=== PATIENT | male | born 1965 | race Caucasian/White ===

== ENCOUNTER → 2016-09-29 | Day surgery (SDC) | payer BC ==
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
[~2016-09-29] MED LIST: ACETAMINOPHEN 1000 MG/100 ML VIAL IV ONE; ACETAMINOPHEN/HYDROcodone 325 MG/5 MG TAB PO PRN; CIPR500T2 PO; DEXAMETHASONE SOD PHOS 4 MG/ML VIAL ONE; DO NOT ADM ANY ANTICOAGULANT DRUGS XX PRN; FAMOTIDINE 20 MG/2 ML VIAL ONE; HYDR-3516 PO; KETOROLAC TROMETHAMINE 60 MG/2 ML (IM) VIAL IM ONE; LACTATED RINGER'S 1000 ML INJ 1,000 ML IV ONE; LIDOCAINE HCL 2% PF SOLN 10 ML VIAL ONE; MIDAZOLAM HCL 2 MG/2 ML VIAL ONE; MORPHINE SULFATE 10 MG/ML INJ IM PRN; ONDANSETRON HCL 4 MG/2 ML VIAL IV PUSH ONE; POVIDONE IODINE 7.5% SCRUB 118 ML BOTTLE TOP SCH; PROMETHAZINE INJ 25 MG/ML VIAL IM PRN; PROPOFOL 200 MG/20 ML AMP IV ONE; TRIAMCINOLONE ACETONIDE 40 MG/ML VIAL IA ONE; ceFAZolin 2 GM PREMIX 50 ML IV SCH; fentaNYL CITRATE 250 MCG/5 ML AMP ONE
[2016-09-29 06:05] VITALS: BP 132/84; PULSE 88; RESP 16; TEMP 98.2; O2SAT 96
[2016-09-29 11:13] VITALS: BP 136/77; PULSE 95; RESP 16; TEMP 97.3; O2SAT 99
--- NOTE | 2016-09-30 19:24 | MP ---
cc: DEONNA WYATT M.D. DATE OF SURGERY: 09/29/2016. PREOPERATIVE DIAGNOSIS: Medial meniscus tear of the left knee with associated chondromalacia. effusion and pain of the left knee. POSTOPERATIVE DIAGNOSIS: Medial meniscus tear of the left knee with associated chondromalacia. effusion and pain including synovial plica left knee. OPERATIVE PROCEDURE PERFORMED: Partial medial meniscectomy left knee, chondroplasty of the medial femoral compartment and release, resection synovial plica left knee. SURGEON: Deonna Wyatt MD. ANESTHESIA: General by LMA. DESCRIPTION OF THE PROCEDURE IN DETAIL / FORMAT: Following induction of satisfactory general anesthesia by LMA insertion as completed per the department of anesthesia, examination of the left knee revealed a satisfactory range of motion with no appreciable ligamentous instability. The extremity proper was positioned into the workforce development assistant knee chen and prepped with Betadine solution and draped into a sterile field in the routine manner. Prior to initiation of the actual procedure, the standard time-out protocol was completed and all parameters were appropriately addressed and confirmed by operating room personnel. Arthroscopic instrumentation was introduced through a stab wound utilizing cannula with sharp and blunt trocar, the inflow irrigation by way of the medial suprapatellar portal, the arthroscope through a lateral parapatellar portal and a probe through a medial parapatellar portal. Examination of the suprapatellar pouch revealed reactive synovitis with a synovial plica extending in a transverse orientation from a medial to lateral direction. Mild degenerative irregularity of the patellofemoral joint was noted consistent with localized chondromalacia. Within the medial compartment, a degenerative tear involving the body and posterior horn of the medial meniscus was readily identified. There were associated articular changes consistent with localized chondromalacia. Proliferative and reactive synovium extended into the intercondylar region. The anterior cruciate ligament was identified and noted to be intact. Examination of the lateral compartment was essentially unremarkable with uniformity of the lateral meniscus as well as the articular surfaces involving the lateral femoral condyle and the tibial plateau. Attention was redirected to the medial compartment. Utilizing a 4.0 aggressive resector, a partial medial meniscectomy was accomplished as well as localized debridement chondroplasty of the articular surface of the femoral condyle. The resector was thereafter oriented into the suprapatellar region where the previously identified synovial plica was released and partially resected. Upon completion of same, the joint space was thoroughly lavaged and suctioned dry and intra-articular Kenalog lidocaine injection was completed. The portal sites were reapproximated with Steri-Strips over which Xeroform gauze and a bulky dry sterile dressing placed. Anesthesia was discontinued and the patient was thus transferred to a hospital stretcher and returned to the recovery room in satisfactory condition having tolerated his operative procedure well. Estimated blood loss was less than 25 mL. MD BENITA Steel/JCC /9:49 AM /7:06 PM
== END | disposition home or self-care (01) ==
LOC: HSDC 05:57
PROVIDERS: ATTEND Orthopaedic Surgery
DX: S83.242A Other tear of medial meniscus, current injury, left knee, initial encounter (principal); M94.262 Chondromalacia, left knee; M25.462 Effusion, left knee; M25.562 Pain in left knee
CPT/HCPCS: 01400; 29881; J0131; J0690; J1100; J1885; J2250; J2405; J3010; J3301; J7120